=== PATIENT | female | born 1950 | race Caucasian/White ===

== ENCOUNTER 2017-07-02 14:55 | Emergency (ER) | payer BC ==
[2017-07-02 15:49] LABS: URINE APPEARANCE SL CLOUDY; URINE BILIRUBIN NEGATIVE (NEGATIVE); URINE BLOOD MODERATE (NEGATIVE); URINE COLOR YELLOW; URINE GLUCOSE (UA) NEGATIVE (NEGATIVE); URINE KETONE NEGATIVE (NEGATIVE); URINE LEUKOCYTE ESTERASE NEGATIVE (NEGATIVE); URINE NITRITE NEGATIVE (NEGATIVE); URINE UROBILINOGEN 0.2 E.U./dL (0.20 - 1.00)
[2017-07-02 15:50] LABS: URINE RBC 21 - 35 (NONE SEEN); URINE WBC NONE SEEN (0-2/hpf)
[2017-07-02] MEDS ORDERED: 0.9 % SODIUM CHLORIDE 1,000 ML BAG IV ONE (16:55)
[2017-07-02] MEDS ORDERED: ONDANSETRON HCL IV 4 MG/2 ML VIAL IV ONE (16:55)
--- NOTE | 2017-07-02 17:26 | Emergency Department Record ---
History of Present Illness - General Chief Complaint: Abdominal Pain Stated Complaint: LOWER ABD PAIN Time Seen by Provider: 07/02/17 16:49 Source: Patient Mode of Arrival: Ambulatory Limitations: No limitations - History of Present Illness Initial Comments: pt has had hematuria and ap and flank pain. she has dysuria and frequency and is having significant abd pain MD Complaint: Abdominal pain, Flank pain Onset/Timin -: Days(s) Location: LLQ Radiation: Suprapubic, RLQ Quality: Aching Improves With: Nothing Worsens With: Nothing Context: Other Associated Symptoms: Constipation, Hematuria, Nausea, Vomiting - Related Data Patient : No Allergies Allergy/AdvReac Type Severity Reaction Status Date / Time No Known Allergies Allergy none Verified 07/02/17 15:58 Travel Screening - Travel/Exposure Within Last 30 Days Have you traveled within the last 30 days?: No - Travel/Exposure Within Last Year Have you traveled outside the [place] in the last year?: No - Additonal Travel Details Have you been exposed to anyone with a communicable illness?: No Review of Systems Reviewed: No additional complaints except as noted below Constitutional: Reports: As per HPI. Denies: Chills, Fever, Malaise, Night sweats, Weakness, Weight change Eyes: Reports: As per HPI. Denies: Eye discharge, Eye pain, Photophobia, Vision change ENT: Reports: As per HPI. Denies: Congestion, Dental pain, Ear pain, Epistaxis , Hearing loss, Throat pain Respiratory: Reports: As per HPI. Denies: Cough, Dyspnea, Hemoptysis, Stridor, Wheezes Cardiovascular: Reports: As per HPI. Denies: Arrhythmia, Chest pain, Dyspnea on exertion, Edema, Murmurs, Orthopnea, Palpitations, Paroxysmal nocturnal dyspnea, Rheumatic Fever, Syncope Endocrine: Reports: As per HPI. Denies: Fatigue, Heat or cold intolerance, Polydipsia, Polyuria Gastrointestinal: Reports: As per HPI. Denies: Abdominal pain, Constipation, Diarrhea, Hematemesis, Hematochezia, Melena, Nausea, Vomiting Genitourinary: Reports: As per HPI. Denies: Abnormal menses, Discharge, Dyspareunia, Dysuria, Frequency, Hematuria, Incontinence, Retention, Urgency Musculoskeletal: Reports: As per HPI. Denies: Arthralgia, Back pain, Gout, Joint swelling, Myalgia, Neck pain Skin: Reports: As per HPI. Denies: Bruising, Change in color, Change in hair/ nails, Lesions, Pruritus, Rash Neurological: Reports: As per HPI. Denies: Abnormal gait, Confusion, Headache, Numbness, Paresthesias, Seizure, Tingling, Tremors, Vertigo, Weakness Psychiatric: Reports: As per HPI. Denies: Anxiety, Auditory hallucinations, Depression, Homicidal thoughts, Suicidal thoughts, Visual hallucinations Hematological/Lymphatic: Reports: As per HPI. Denies: Anemia, Blood Clots, Easy bleeding, Easy bruising, Swollen glands Past Medical History - SOCIAL HISTORY Smoking Status: Never smoker Alcohol Use: None Drug Use: None - RESPIRATORY Hx Respiratory Disorders: No - CARDIOVASCULAR Hx Cardio Disorders: No - NEURO Hx Neuro Disorders: No - GI Hx GI Disorders: No - Hx Genitourinary Disorders: Yes Hx Bladder Problem: Yes - ENDOCRINE Hx Endocrine Disorders: No - MUSCULOSKELETAL Hx Musculoskeletal Disorders: No - PSYCH Hx Psych Problems: No - HEMATOLOGY/ONCOLOGY Hx Hematology/Oncology Disorders: No Family Medical History Any Significant Family History?: No Physical Exam - General General Appearance: Alert, Oriented x3, Cooperative, Mild distress - Head Head exam: Normal inspection - Eye Eye exam: Normal appearance, PERRL, EOMI Pupils: Normal accommodation - ENT ENT exam: Normal exam, Mucous membranes moist, Normal external ear exam, Normal orophraynx Ear exam: Normal external inspection. negative: External canal tenderness Nasal Exam: Normal inspection. negative: Discharge, Sinus tenderness Mouth exam: Normal external inspection, Tongue normal Teeth exam: Normal inspection. negative: Dental caries Throat exam: Normal inspection. negative: Tonsillar erythema, Tonsillar exudate - Neck Neck exam: Normal inspection, Full ROM. negative: Tenderness - Respiratory Respiratory exam: Normal lung sounds bilaterally. negative: Respiratory distress - Cardiovascular Cardiovascular Exam: Regular rate, Normal rhythm, Normal heart sounds - GI/Abdominal GI/Abdominal exam: Soft, Normal bowel sounds, Tenderness - Rectal Rectal exam: Deferred - exam: Deferred - Extremities Extremities exam: Normal inspection, Full ROM, Normal capillary refill. negative: Tenderness - Back Back exam: Reports: Normal inspection, Full ROM. Denies: Muscle spasm, Rash noted, Tenderness - Neurological Neurological exam: Alert, CN II-XII intact, Normal gait, Oriented X3 - Psychiatric Psychiatric exam: Normal affect, Normal mood - Skin Skin exam: Dry, Intact, Normal color, Warm Course Vital Signs 07/02/17 16:51 Temperature 99.0 F Pulse Rate [ 72 Pulse Ox Probe] Respiratory 20 Rate Blood Pressure 116/83 [Left Arm] Pulse Ox 95 - Reevaluation(s) Reevaluation #1: 07/02/17 18:33 d/w dr harris and Serina Medical Decision Making - Lab Data Result diagrams: 07/02/17 17:17 07/02/17 17:17 Lab Results 07/02/17 Range/Units 15:40 Urine Color Yellow Urine Appearance Sl cloudy Urine pH 6.0 (5.0-8.0) Ur Specific B[place]ord 1.025 (1.002-1.030) Urine Protein 100 mg/dl H (NEGATIVE) Urine Glucose (UA) Negative (NEGATIVE) Urine Ketones Negative (NEGATIVE) Urine Blood Moderate (NEGATIVE) Urine Nitrite Negative (NEGATIVE) Urine Bilirubin Negative (NEGATIVE) Urine Urobilinogen 0.2 (0.20 - 1.00) E.U./dL Ur Leukocyte Esterase Negative (NEGATIVE) Urine RBC 21 - 35 (NONE SEEN) Urine WBC None seen (0-2/hpf) Ur Epithelial Cells 3 - 6 (FEW) Disposition Disposition: Transfer Clinical Impression: Colitis, Perforation bowel Disposition: Acute Care Hospital Transfer Transfer To: [facility] Reason For Transfer: surgeons request Accepting Physician: chika pérez Time Discussed w/Accepting Physician: 18:29 Forms: Patient Portal Access Quality - Quality Measures Quality Measures: N/A - Blood Pressure Screening Does Patient Have Any of the Following: No Blood Pressure Classification: Pre-Hypertensive BP Reading Systolic Measurement: 116 Diastolic Measurement: 83 Screening for High Blood Pressure: < Pre-Hypertensive BP, F/U Documented > [ G8950] Pre-Hypertensive Follow-up Interventions: Follow-up with rescreen every year.
[2017-07-02 17:31] LABS: HEMATOCRIT 38.3 % (35.0-47.0); HEMOGLOBIN 12.5 gm/dl (11.6-16.0); MEAN CORPUSCULAR HEMOGLOBIN 26.1 pg (27-33); MEAN CORPUSCULAR HGB CONC 32.6 g/dl (32-36); MEAN PLATELET VOLUME 8.9 fl (7.4-10.4); PLATELET COUNT 372 K/uL (130-400); RED BLOOD COUNT 4.79 M/uL (3.80-5.40); RED CELL DISTRIBUTION WIDTH 16.6 % (11.5-14.5); WHITE BLOOD COUNT W/O DIFF 12.8 K/uL (4.2-12.2)
[2017-07-02 17:40] LABS: PLATELET ESTIMATE NORMAL (NORMAL)
[2017-07-02 17:47] LABS: ALB/GLOB RATIO 1.1 (1.1-1.8); ALBUMIN 3.8 g/dL (4.0-5.0); ALKALINE PHOSPHATASE 172 U/L (35-104); ALT/SGPT 27 U/L (<33); AST/SGOT 23 U/L (10.0-35.0); BLOOD UREA NITROGEN 11 mg/dL (8-23); CREATININE 0.7 mg/dL (0.5-0.9); EST GLOMERULAR FILTRATION RATE > 60 mL/min; GLUCOSE,RANDOM 116 mg/dL (74-109); LIPASE 16 U/L (13-60); TOTAL PROTEIN 7.3 g/dL (6.6-8.7)
[2017-07-02] MEDS ORDERED: HYDROMORPHONE HCL 1MG/ML **SYRINGE IVP ONE (18:16)
[2017-07-02] MEDS ORDERED: ERTAPENEM SODIUM 1 G in 0.9 % SODIUM CHLORIDE 100ML 100 ML IVPB ONE (18:24)
--- NOTE | 2017-07-04 08:31 | CT SCAN REPORT ---
EXAM: CT OF THE ABDOMEN AND PELVIS WITHOUT CONTRAST HISTORY: BILATERAL LOWER PELVIC PAIN. TECHNIQUE: Sequential axial images were obtained from the diaphragms through the ischiorectal fossa without intravenous or oral contrast administration. FINDINGS: The visualized lung bases appear normal. There is mild fatty infiltration of the liver. There is a nonspecific low density lesion in the left lobe. The gallbladder, pancreas and spleen appear normal. The adrenal glands appear normal. The kidneys appear normal. There are no CT findings suggestive of obstructive uropathy. There is equivocal mild wall thickening of the urinary bladder. The small bowel appears normal. There is a short segment of wall thickening with adjacent inflammatory change involving the sigmoid colon. Nonspecific colitis is considered. There is an equivocal focal area of microperforation in the dependent pelvis. The osseous structures are normal. IMPRESSION: 1. SHORT SEGMENT OF WALL THICKENING WITH ADJACENT INFLAMMATORY CHANGE SUGGESTIVE OF NONSPECIFIC COLITIS INVOLVING THE SIGMOID COLON. THERE IS AN EQUIVOCAL FOCAL AREA OF MICROPERFORATION. NO ORGANIZED FLUID COLLECTION AT THIS TIME. 2. INCOMPLETE DISTENTION OF THE URINARY BLADDER. THERE IS WALL THICKENING WITH SURROUNDING INFLAMMATORY CHANGE. A SUPERIMPOSED CYSTITIS CANNOT BE EXCLUDED. JOB NUMBER: [id number] [facility]
== END 2017-07-02 19:05 | disposition short-term general hospital (02) ==
LOC: ER 14:55
DX: K63.1 Perforation of intestine (nontraumatic) (principal); K52.9 Noninfective gastroenteritis and colitis, unspecified; R11.2 Nausea with vomiting, unspecified; R31.0 Gross hematuria
CPT/HCPCS: 99284 ×2; 96365; 96375; 83690; 80053; 81001; 85027; 74176; J1335; J2405; J1170; J7030

== ENCOUNTER 2017-08-29 09:06 | Day surgery (SDC) | payer BC ==
[2017-08-29] MEDS ORDERED: ONDANSETRON HCL IV 4 MG/2 ML VIAL IVP ONE (09:07)
[2017-08-29] MEDS ORDERED: PROPOFOL 10 MG/ML VIAL IV ONE (09:07)
[2017-08-29] MEDS ORDERED: LIDOCAINE 2% MDV (20MG/ML) 20ML VIAL IV ONE (09:07)
--- NOTE | 2017-08-29 13:30 | Operative Note ---
DATE OF SURGERY: 08/29/2017 OPERATION: COLONOSCOPY to the cecum with electrocautery snare polypectomy x2, ink spot injection, and Endoclip placement. INDICATION: Colorectal cancer screening. ANESTHESIA: Intravenous sedation was administered by the department of anesthesiology and included Diprivan titrated to effect. PROCEDURE: Following informed consent from this alert individual including a discussion of the risks and benefits of the procedure and an opportunity for the patient to ask questions, the patient was in the left lateral decubitus position. A digital rectal examination was performed. No abnormalities were noted. Following this, the Olympus [id number] video colonoscope was inserted into the rectum without resistance. In the distal rectum just proximal to the distal valve of Lambert, there was a large semi-sessile polyp noted measuring approximately 2.5 cm in largest diameter. It was quite friable. The polyp was initially traversed and the colonoscope was advanced up through the remainder of the bowel to the level of the cecum. In the descending colon, there was a 7-8 mm sessile polyp noted which was removed with electrocautery snare. A white eschar was noted. There was no bleeding. The cecum was then defined by noting the appendiceal orifice and ileocecal valve. Retroflexion in the cecum was endoscopically unremarkable. The colon preparation was good. The colonoscope was then slowly withdrawn. No additional polyps were seen until the rectum was reached. There were a few small diverticula noted in the sigmoid colon. Again, the polyp was approximately 2.5 cm in largest diameter but seemed semi-pedunculated. For this reason, utilizing a polypectomy snare, the polyp was removed completely with 2 sections. A white eschar was noted at the polypectomy site. The site was injected with ink spot and then an Endoclip was placed over the polypectomy site for closure. Retroflexion otherwise in the rectum was endoscopically unremarkable. The endoscope was straightened and withdrawn. The patient tolerated the procedure well and was returned to the recovery area in stable condition. IMPRESSION: 1. Large 2.5 cm semi-pedunculated polyp in the distal rectum just proximal to the distal valve of Lambert and removed as described above with electrocautery snare, ink spot applied, and Endoclip placed for closure. 2. A 7-8 mm polyp in the descending colon removed with electrocautery snare polypectomy. 3. Mild diverticulosis. RECOMMENDATIONS: The patient was advised she should receive a copy of her pathology report at home in the next 2-3 weeks. If not, she was asked to call my office to review the results of testing today. Further recommendations forthcoming pending those results. Followup will also be with Dr. Herbie Jimenez. As always, thank you for allowing me to participate in the care of your patient. CC: Dr. Barbara HATHAWAY
== END 2017-08-29 11:31 | disposition home or self-care (01) ==
LOC: HOP 09:06
PROVIDERS: ATTEND Internal Medicine Gastroenterology
DX: Z12.11 Encounter for screening for malignant neoplasm of colon (principal); D12.4 Benign neoplasm of descending colon; D12.8 Benign neoplasm of rectum; K57.30 Diverticulosis of large intestine without perforation or abscess without bleeding; E78.00 Pure hypercholesterolemia, unspecified
CPT/HCPCS: 45385; 00810; J2405

== ENCOUNTER 2018-09-12 13:42 | Observation (INO) | payer MEDICARE, BC ==
[2018-09-12] MEDS ORDERED: ASPIRIN 81 MG CHEWABLE TABLET PO ONE (14:11)
[2018-09-12 14:27] LABS: BASO % 0.5 % (0-6); EOS % 1.7 % (0-6); GRAN % 67.8 % (47-80); HEMATOCRIT 42.7 % (35.0-47.0); HEMOGLOBIN 13.6 gm/dl (11.6-16.0); LYMPH % 22.8 % (16-45); MEAN CELL VOLUME 81.6 fl (81-97); MEAN CORPUSCULAR HGB CONC 31.9 g/dl (32-36); MEAN PLATELET VOLUME 9.1 fl (7.4-10.4); MONO % 7.2 % (0-9); PLATELET COUNT 329 K/uL (130-400); RED BLOOD COUNT 5.23 M/uL (3.80-5.40); RED CELL DISTRIBUTION WIDTH 17.1 % (11.5-14.5); WHITE BLOOD COUNT W/O DIFF 10.4 K/uL (4.2-12.2)
[2018-09-12 14:39] LABS: BLOOD UREA NITROGEN 15 mg/dL (8-23); CREATININE 0.7 mg/dL (0.5-0.9); EST GLOMERULAR FILTRATION RATE > 60 mL/min
[2018-09-12 14:40] LABS: TOTAL PROTEIN 7.3 g/dL (6.6-8.7)
[2018-09-12 14:42] LABS: GLUCOSE,RANDOM 102 mg/dL (74-109)
[2018-09-12 14:44] LABS: ALT/SGPT 24 U/L (<33); AST/SGOT 19 U/L (10.0-35.0)
[2018-09-12 14:45] LABS: ALB/GLOB RATIO 1.5 (1.1-1.8); ALBUMIN 4.4 g/dL (4.0-5.0); ALKALINE PHOSPHATASE 144 U/L (35-104); CREATINE PHOSPHOKINASE 51 U/L (26-192)
[2018-09-12 14:47] LABS: CKMB 1.2 ng/mL (<3.77)
[2018-09-12 14:48] LABS: NTpro B-NATRIURETIC PEPTIDE 38.76 pg/mL (<125)
[2018-09-12] MEDS: NITROGLYCERIN 0.4MG SL TABLET #25 BTL SL PRN ×3 (14:49→15:17)
[2018-09-12] MEDS ORDERED: ONDANSETRON HCL IV 4 MG/2 ML VIAL IVP ONE (14:58)
--- NOTE | 2018-09-12 15:17 | Emergency Department Record ---
History of Present Illness - General Chief Complaint: Chest Pain Stated Complaint: CHEST PAIN Time Seen by Provider: 09/12/18 14:03 Source: Patient Mode of Arrival: Wheelchair Limitations: No limitations - History of Present Illness Initial Comments: pt has been having cp since last night that is constant. it is burning and tightness. she has has some nausea. she thought initially it was heartburn and took maalox which helped initially but then didnt. she has some sob also. her sisters and parents have had stents MD Complaint: Chest pain Onset/Timin -: Days(s) Pain Location: Substernal Pain Radiation: None Severity scale (1-10): 3 Quality: Heaviness, Other Consistency: Constant Improves With: Nothing Worsens With: Nothing Anginal Symptoms: Dyspnea, Nausea - Related Data Home Medications Medication Instructions Recorded Confirmed Last Taken Ergocalciferol (Vitamin D2) 50,000 unit PO WEEKLY 09/12/18 09/12/18 09/07/18 [Vitamin D2] Allergies Allergy/AdvReac Type Severity Reaction Status Date / Time No Known Allergies Allergy none Verified 07/02/17 15:58 Travel Screening - Travel/Exposure Within Last 30 Days Have you traveled within the last 30 days?: No - Travel/Exposure Within Last Year Have you traveled outside the [place] in the last year?: No - Additonal Travel Details Have you been exposed to anyone with a communicable illness?: No Review of Systems Reviewed: No additional complaints except as noted below Constitutional: Reports: As per HPI. Denies: Chills, Fever, Malaise, Night sweats, Weakness, Weight change Eyes: Reports: As per HPI. Denies: Eye discharge, Eye pain, Photophobia, Vision change ENT: Reports: As per HPI. Denies: Congestion, Dental pain, Ear pain, Epistaxis , Hearing loss, Throat pain Respiratory: Reports: As per HPI. Denies: Cough, Dyspnea, Hemoptysis, Stridor, Wheezes Cardiovascular: Reports: As per HPI. Denies: Arrhythmia, Chest pain, Dyspnea on exertion, Edema, Murmurs, Orthopnea, Palpitations, Paroxysmal nocturnal dyspnea, Rheumatic Fever, Syncope Endocrine: Reports: As per HPI. Denies: Fatigue, Heat or cold intolerance, Polydipsia, Polyuria Gastrointestinal: Reports: As per HPI. Denies: Abdominal pain, Constipation, Diarrhea, Hematemesis, Hematochezia, Melena, Nausea, Vomiting Genitourinary: Reports: As per HPI. Denies: Abnormal menses, Discharge, Dyspareunia, Dysuria, Frequency, Hematuria, Incontinence, Retention, Urgency Musculoskeletal: Reports: As per HPI. Denies: Arthralgia, Back pain, Gout, Joint swelling, Myalgia, Neck pain Skin: Reports: As per HPI. Denies: Bruising, Change in color, Change in hair/ nails, Lesions, Pruritus, Rash Neurological: Reports: As per HPI. Denies: Abnormal gait, Confusion, Headache, Numbness, Paresthesias, Seizure, Tingling, Tremors, Vertigo, Weakness Psychiatric: Reports: As per HPI. Denies: Anxiety, Auditory hallucinations, Depression, Homicidal thoughts, Suicidal thoughts, Visual hallucinations Hematological/Lymphatic: Reports: As per HPI. Denies: Anemia, Blood Clots, Easy bleeding, Easy bruising, Swollen glands Past Medical History - SOCIAL HISTORY Smoking Status: Never smoker Alcohol Use: None Drug Use: None - RESPIRATORY Hx Respiratory Disorders: Yes Hx Sleep Apnea: Yes Hx of CPAP: Yes - CARDIOVASCULAR Hx Cardio Disorders: No Comment:: high cholesterol - NEURO Hx Neuro Disorders: No - GI Hx GI Disorders: No Hx Diverticulitis: Yes - Hx Genitourinary Disorders: Yes Hx Bladder Problem: Yes Hx UTI: Yes - ENDOCRINE Hx Endocrine Disorders: No - MUSCULOSKELETAL Hx Musculoskeletal Disorders: No - PSYCH Hx Psych Problems: No - HEMATOLOGY/ONCOLOGY Hx Hematology/Oncology Disorders: No Family Medical History Any Significant Family History?: No Hx Heart Disease: Father, Mother, Brother/Sister Physical Exam - General General Appearance: Alert, Oriented x3, Cooperative, Mild distress - Head Head exam: Normal inspection - Eye Eye exam: Normal appearance, PERRL, EOMI Pupils: Normal accommodation - ENT ENT exam: Normal exam, Mucous membranes moist, Normal external ear exam, Normal orophraynx Ear exam: Normal external inspection. negative: External canal tenderness Nasal Exam: Normal inspection. negative: Discharge, Sinus tenderness Mouth exam: Normal external inspection, Tongue normal Teeth exam: Normal inspection. negative: Dental caries Throat exam: Normal inspection. negative: Tonsillar erythema, Tonsillar exudate - Neck Neck exam: Normal inspection, Full ROM. negative: Tenderness - Respiratory Respiratory exam: Normal lung sounds bilaterally. negative: Respiratory distress - Cardiovascular Cardiovascular Exam: Regular rate, Normal rhythm, Normal heart sounds - GI/Abdominal GI/Abdominal exam: Soft, Normal bowel sounds. negative: Tenderness - Rectal Rectal exam: Deferred - exam: Deferred - Extremities Extremities exam: Normal inspection, Full ROM, Normal capillary refill. negative: Tenderness - Back Back exam: Reports: Normal inspection, Full ROM. Denies: Muscle spasm, Rash noted, Tenderness - Neurological Neurological exam: Alert, CN II-XII intact, Normal gait, Oriented X3 - Psychiatric Psychiatric exam: Normal affect, Normal mood - Skin Skin exam: Dry, Intact, Normal color, Warm Course Vital Signs 09/12/18 09/12/18 09/12/18 13:43 14:50 15:04 Temperature 97.8 F Pulse Rate 84 Pulse Rate [ 79 68 Pulse Ox Probe] Respiratory 16 16 Rate Blood Pressure 150/92 Blood Pressure 131/77 126/76 [Left Arm] Pulse Ox 99 09/12/18 15:09 Temperature Pulse Rate Pulse Rate [ 66 Pulse Ox Probe] Respiratory Rate Blood Pressure Blood Pressure 104/71 [Left Arm] Pulse Ox - Reevaluation(s) Reevaluation #1: 09/12/18 16:59 pts pain remained 1-2 Medical Decision Making - Lab Data Result diagrams: 09/12/18 13:07 09/12/18 13:07 Lab Results 09/12/18 09/12/18 09/12/18 Range/Units 13:07 13:07 13:07 WBC 10.4 (4.2-12.2) K/uL RBC 5.23 (3.80-5.40) M/uL Hgb 13.6 (11.6-16.0) gm/dl Hct 42.7 (35.0-47.0) % MCV 81.6 (81-97) fl MCH 26.0 L (27-33) pg MCHC 31.9 L (32-36) g/dl RDW 17.1 H (11.5-14.5) % Plt Count 329 (130-400) K/uL MPV 9.1 (7.4-10.4) fl Gran % 67.8 (47-80) % Lymphocytes % 22.8 (16-45) % Monocytes % 7.2 (0-9) % Eosinophils % 1.7 (0-6) % Basophils % 0.5 (0-6) % D-Dimer 0.26 (0-0.59) mg/L FEU Sodium 141 (136-145) mmol/L Potassium 3.8 (3.4-4.5) mmol/L Chloride 101 (98-107) mmol/L Carbon Dioxide 26.0 (22-29) mmol/L Anion Gap 14.0 (7-16) BUN 15 (8-23) mg/dL Creatinine 0.7 (0.5-0.9) mg/dL Estimated GFR > 60 mL/min Random Glucose 102 (74-109) mg/dL Calcium 9.7 (8.8-10.2) mg/dL Total Bilirubin 0.20 (0.2-1.0) mg/dL AST 19 (10.0-35.0) U/L ALT 24 (<33) U/L Alkaline Phosphatase 144 H (35-104) U/L Creatine Kinase 51 (26-192) U/L CK-MB (CK-2) 1.2 (<3.77) ng/mL Troponin T < 0.010 (0-0.010) ng/mL NT-Pro-B Natriuret Pep 38.76 (<125) pg/mL Total Protein 7.3 (6.6-8.7) g/dL Albumin 4.4 (4.0-5.0) g/dL Globulin 2.9 (1.4-4.8) gm/dL Albumin/Globulin Ratio 1.5 (1.1-1.8) Disposition Disposition: Admit Clinical Impression: Chest pain Qualifiers: Chest pain type: unspecified Qualified Code(s): R07.9 - Chest pain, unspecified Disposition: Still a Patient at [facility] Decision to Admit: Admit from ER Decision to Admit Date: 09/12/18 Decision to Admit Time: 17:00 Forms: Patient Portal Access Quality - Quality Measures Quality Measures: N/A - Blood Pressure Screening Does Patient Have Any of the Following: No Blood Pressure Classification: Hypertensive Reading Systolic Measurement: 150 Diastolic Measurement: 92 Screening for High Blood Pressure: < First Hypertensive BP, F/U Documented > [ G8950] First Hypertensive Follow-up Interventions: Follow-up with rescreen GT 1 day and LT 4 weeks.
[2018-09-12 15:21] LABS: URINE APPEARANCE CLEAR; URINE BILIRUBIN NEGATIVE (NEGATIVE); URINE BLOOD NEGATIVE (NEGATIVE); URINE COLOR YELLOW; URINE GLUCOSE (UA) NEGATIVE (NEGATIVE); URINE KETONE NEGATIVE (NEGATIVE); URINE LEUKOCYTE ESTERASE NEGATIVE (NEGATIVE); URINE NITRITE NEGATIVE (NEGATIVE); URINE PROTEIN NEGATIVE (NEGATIVE); URINE UROBILINOGEN 0.2 E.U./dL (0.20 - 1.00)
[2018-09-12] MEDS ORDERED: TEMAZEPAM 15 MG CAPSULE PO PRN (17:57)
[2018-09-12] MEDS ORDERED: NITROGLYCERIN 0.4MG SL TABLET #25 BTL SL PRN (17:57)
[2018-09-12] MEDS ORDERED: ACETAMINOPHEN 500 MG TABLET PO PRN (17:57)
[2018-09-12] MEDS ORDERED: PANTOPRAZOLE SODIUM 40 MG TABLET PO ONE (20:24)
[2018-09-12] MEDS ORDERED: ENOXAPARIN 40 MG/0.4 ML SYR SQ SCH (20:30)
[2018-09-12] MEDS: AL HYDROX/MAG HYDROX 30ML UD PO SCH (20:33)
[2018-09-13] MEDS ORDERED: PANTOPRAZOLE SODIUM 40 MG TABLET PO SCH (07:00)
--- NOTE | 2018-09-13 08:07 | RADIOLOGY REPORT ---
EXAM: CHEST, TWO VIEWS HISTORY: CHEST PAIN. TECHNIQUE: Frontal and lateral views of the chest were obtained. Comparison: 01/07/15. FINDINGS: Frontal and lateral views of the chest show minimal linear scar in the left lung base. The cardiomediastinal silhouette is within normal limits. No air space disease. No pleural effusion. The bony structures are unremarkable. IMPRESSION: NO ACUTE ABNORMALITIES IN THE CHEST. JOB NUMBER: [id number] MTDD
[2018-09-13] MEDS: AL HYDROX/MAG HYDROX 30ML UD PO SCH ×2 (09:00→12:48)
[2018-09-13] MEDS ORDERED: PATIENT OWN MED: ASPIRIN 81 MG PO SCH (10:00)
[2018-09-13] MEDS ORDERED: ASPIRIN 325 MG TAB ENTERIC-COATED PO SCH (10:00)
--- NOTE | 2018-09-13 16:26 | Discharge Note ---
VTE H&P Assessment - Risk for VTE Risk for VTE: Yes Risk Level: Moderate Risk Assessment Date: 09/12/18 Risk Assessment Time: 22:00 VTE Orders Placed or Will Be Placed: Yes Discharge Medications - Discharge Medications Prescriptions: Magnesium Hydroxide/Al Hydrox [Maalox] 30 ml PO WMEALS #1 bottle Omeprazole 20 mg PO DAILY #30 cap. Home Medications: Ambulatory Orders Simvastatin [Zocor] 20 mg PO DAILY tab 03/31/16 [Last Taken 09/11/18] Ergocalciferol (Vitamin D2) [Vitamin D2] 50,000 unit PO WEEKLY 09/12/18 [Last Taken 09/07/18] Acetaminophen [Tylenol 500Mg Tab] 1,000 mg PO Q6H PRN tablet 09/13/18 [Last Taken Unknown] Magnesium Hydroxide/Al Hydrox [Maalox] 30 ml PO WMEALS #1 bottle 09/13/18 [Last Taken Unknown] Omeprazole 20 mg PO DAILY #30 cap. 09/13/18 [Last Taken Unknown] Discharge Note - Date Date of Discharge Note: 09/13/18 Disposition: Home, Self-Care Condition: (1) Good Additional Instructions: follow up with Dr Jimenez on tuesday stop aspirin use maaloz one tablespoon after meals and bedtime start omeprazole Forms: Patient Portal Access Activity at Discharge: Increase Activity as Tolerated Diet at Discharge: Low Fat, Low Cholesterol, Low Salt Diet
--- NOTE | 2018-09-13 20:00 | Cardiology Consult ---
DATE: 09/13/2018 Ms. Olmstead is 67 years old, who presented to [facility] on 09/12 with complaints of substernal chest pressure. She states she has been having substernal chest tightness for the past three to four days. It was persistent for the past 24 hours prior to presentation. It is central chest with a burning sensation with no radiation. She states activity did occasional increase the intensity of the discomfort. She also had some dyspnea with exertional activity. She has no history of coronary artery disease, diabetes mellitus, hypertension, or hyperlipidemia. She is on no current medical regimen. ALLERGIES: NONE. SOCIAL HISTORY: She states she never smoked or did illicit drugs. She was a housewife. FAMILY HISTORY: Father and mother both had coronary artery disease in their late 60's. PHYSICAL EXAM: GENERAL: She is afebrile. VITAL SIGNS: Blood pressure was 131/77. Pulse 79. Respirations 16. LUNGS: Clear to auscultation. CARDIAC: Cardiac exam was normal. ABDOMEN: Obese. EXTREMITIES: Extremities reveal no edema. LABORATORY: Her white count was 10.4. Hemoglobin 13.8. Platelets 329,000. Sodium 141. Potassium 3.8. Creatinine 0.7. Troponin was less than 0.10. proBNP was 38. D-dimer was 0.26, which is normal. ECG: ECG demonstrated sinus rhythm with normal axis and intervals. IMPRESSION/PLAN: Ms. Olmstead is 67 years old with atypical chest pain for the past several days with negative cardiac enzymes and normal ECG. Therefore, a Treadmill Stress Test was performed today with completion of 8 METS of activity with mild hypertensive response to exercise. There was no evidence for ischemia or arrhythmia. Echocardiogram performed on 09/13/2018 at [facility] demonstrated a normal ejection fraction and mild mitral and tricuspid regurgitation. She had no chest pressure during exercise stress testing. At this time, the etiology of chest pressure could be GI in nature. She can be discharged from a cardiovascular standpoint. If she has an increase in intensity of symptoms without any adequate explanation, she is welcome to return to our office for further cardiac evaluation and workup. Thank you for this consultation. JOB NUMBER: [id number] MTDD
--- NOTE | 2018-09-13 20:07 | Stress Test Report ---
DATE OF TEST: 09/13/2018 Ms. Olmstead is 67 years old, undergoing Treadmill Stress Test for atypical chest pain. Her resting heart rate is 79 beats per minute and blood pressure 131/60. ECG demonstrated sinus rhythm with normal axis and intervals. She exercised for 6 minutes, 30 seconds per the Uzma protocol without any cardiac complaints. She completed 8 METS of activity with no ECG evidence for ischemia or arrhythmia. Her maximum heart rate was 136, which is 87% of age-predicted maximal heart rate. Her peak blood pressure was 214/79, which is a hypertensive response to exercise. FINAL IMPRESSION: 1. ASYMPTOMATIC MAXIMAL UZMA STRESS COMPLETING 8 METS WITH NO ECG EVIDENCE FOR ISCHEMIA OR ARRHYTHMIA. 2. HYPERTENSIVE RESPONSE TO EXERCISE. 3. AVERAGE PHYSICAL FITNESS FOR AGE. JOB NUMBER: [id number] MTDD
[2018-09-13] MEDS ORDERED: ENOXAPARIN 40 MG/0.4 ML SYR SQ SCH (21:00)
[2018-09-13] MEDS ORDERED: PATIENT OWN MED: SIMVASTATIN 20 MG PO SCH (22:00)
--- NOTE | 2018-09-14 09:00 | History and Physical Report ---
DATE OF ADMISSION: 09/13/2018 CHIEF COMPLAINT: Chest pain, epigastric and substernal in nature. HISTORY OF PRESENT ILLNESS: This 67-year-old female presented to the office with substernal chest discomfort, heaviness, which she stated started about 3 to 4 days prior to coming to the office. She stated that she had some burning and tightness and she used some Maalox which helped it initially, but then each day it seemed to be getting worse and last night was bad enough that she came to the office for evaluation. An EKG was done in the office by myself, which showed no acute changes, but because of her history and her family history of sisters and parents having stents and bypass surgery, I personally took her to the emergency department and had Dr. Beaulieu evaluate her for cardiac disease with blood work and further evaluation. Dr. Beaulieu admitted her to the hospital for chest pain unspecified, serial cardiac enzymes. Initial cardiac enzymes were negative. EKG no acute changes. She is admitted for serial cardiac enzymes, serial EKGs, and a cardiology consult with Dr. Ward. PAST MEDICAL HISTORY: Obstructive sleep apnea on C-PAP, hypercholesterolemia. She has had a history of diverticulitis, urinary tract infections. PAST SURGICAL HISTORY: She had a hysterectomy and appendectomy. MEDICATIONS ON ADMISSION: 1. Simvastatin 20 mg daily. 2. Vitamin D2 50,000 units weekly. 3. Aspirin 81 mg daily. ALLERGIES: No known drug allergies. FAMILY PSYCHOSOCIAL HISTORY: She never smoked cigarettes, no alcohol or drug use. Mother and father had heart disease with stents. Brothers and sisters also had heart disease with stents and some of them are younger than her by as much as 5 to 6 years. REVIEW OF SYSTEMS: HEENT: No upper respiratory infectious symptoms, cough, cold, or congestion. CARDIOVASCULAR: See chief complaint. She describes the pain as having this in the substernal area and she did have some relief, Maalox initially, but it did not seem to work in the last 24 hours. RESPIRATORY: She denies cough, cold, or congestion. Never smoked cigarettes. GASTROINTESTINAL: No nausea, vomiting, or diarrhea, black stools or blood stools. GENITOURINARY: No dysuria, hematuria, or frequency or burning on urination. MUSCULOSKELETAL: No joint or bone abnormalities. NEUROLOGIC: No CVA paralysis or paresthesias. GYNECOLOGIC: She has had a hysterectomy, no vaginal bleeding or lumps in her breasts. ENDOCRINE: No diabetes or thyroid disease. INTEGUMENT: No rash, ulcer, change in moles, or yellow skin. PHYSICAL EXAMINATION: GENERAL: Height is 5 feet 1 inch, weight is 195 pounds. VITAL SIGNS: Temperature 98.2, pulse is 76, blood pressure is 106/60, respirations are 16, pulse OX is 98% on room air. HEENT: Pupils are equal, round, and reactive to light and accomodation. Extraocular muscles intact. Throat is clear. Nose is clear. Tympanic membranes are garcia. NECK: Supple. No jugular venous distention, no hepatojugular reflux, no carotid bruits. Thyroid is smooth. CARDIOVASCULAR: Regular rate and rhythm without murmurs, clicks, rubs, or gallops. RESPIRATORY: Clear to auscultation. Breath sounds are equal bilaterally. ABDOMEN: Soft and nontender. No hepatosplenomegaly, no masses, no tenderness. Bowel sounds are active, no bruits. EXTREMITIES: No pitting edema, no cyanosis, no clubbing. Full range of motion, peripheral pulses are good. BREASTS: Deferred. RECTAL: Deferred. GYNECOLOGIC: Deferred. NEUROLOGIC: Cranial nerves II through XII intact. No gross defects. Sensation normal, strength normal, deep tendon reflexes equal bilaterally. Babinski's is negative. MENTAL STATUS: Alert and oriented x 3. IMPRESSION: 1. Chest pain. 2. Possible GERD. 3. Cardiac enzymes negative x2 time points. EKGs no acute changes. 4. Hypercholesterolemia. 5. Obstructive sleep apnea with C-PAP use at home. PLAN: Cardiology consult with Dr. Ward. Protonix and Maalox before meals and at bedtime. The Protonix will be 40 mg once a day. MTDD
--- NOTE | 2018-09-15 08:50 | Discharge Summary ---
DATE: 09/13/2018 at 6 p.m. DISCHARGE DIAGNOSES: 1. Chest pain, atypical. 2. Gastroesophageal reflux disease. 3. Hypercholesterolemia. 4. Obstructive sleep apnea using a CPAP. 5. Cardiac enzymes negative for a myocardial infarction. ATTENDING PHYSICIAN: Jimbo Jimenez DO REASON FOR HOSPITALIZATION: This 67-year-old presented to the office with substernal chest pain lasting for about 4 days. She did take some Maalox which seemed to help it. It is located in the central chest area. She denies any radiation to the arms. No diaphoresis, no significant shortness of breath. She was sent to the emergency department and admitted to the hospital for serial cardiac enzymes and serial EKGs and a cardiology consult. SIGNIFICANT FINDINGS: EKG showing no acute changes x2. Normal sinus rhythm. Cardiac enzymes negative x3. Troponin T. WBC 10,400, hemoglobin 13.6, D-dimer normal at 0.26, BUN 15, creatinine 0.7, alkaline phosphatase 144, brain natriuretic peptide 38.76, cholesterol 144, LDL cholesterol 84. Urine was negative. A chest x-ray revealed no significant findings. Cardiology stress test was done by Dr. Ward which was negative. An echocardiogram showing good ejection fraction was also done. THERAPY PROVIDED: The patient had an observation, was given Maalox, Protonix, and her regular medications. HOSPITAL COURSE: She was able to sleep at night without any discomfort. She was still having some discomfort with talking to her in the central chest area but from a cardiology standpoint, she was negative for cardiac disease. It appears to be more reflux esophagitis. CONDITION ON DISCHARGE: Much improved. DISCHARGE INSTRUCTIONS: Follow up with Dr. Jimenez on Tuesday at 9:30. Use Maalox 30 mL after meals and at bedtime, omeprazole 20 mg a day, continue Zocor 20 mg daily, vitamin D 50,000 units weekly, Tylenol p.r.n. MTDD
== END 2018-09-13 16:50 | disposition home or self-care (01) ==
LOC: ER 13:42 → MEDSURG 17:42
PROVIDERS: ADMIT Emergency Medicine; ATTEND Emergency Medicine
DX: R07.89 Other chest pain (principal); K21.9 Gastro-esophageal reflux disease without esophagitis; E78.00 Pure hypercholesterolemia, unspecified
CPT/HCPCS: 99285 ×2; 96374; 82550; 85025; 82553 ×2; 80053; 81003; 80061; 84484 ×2; 85379; 83880; 71046; 93005 ×2; 93010; 94760; 93017; 93306; G0378 ×2; J2405; 99220; J1650